=== PATIENT | male | born 1935 | race Two or more races ===

== ENCOUNTER 2020-05-29 04:40 | Inpatient (IN) | payer MEDICARE, OTHER ==
[~2020-05-29] VITALS: Ht 180.3 cm; Wt 94.3 kg
[2020-05-29] MEDS ORDERED: IV NS 0.9% 500 ML BAG IV ONE ×2 (05:00→06:30)
--- NOTE | 2020-05-29 05:00 | NUR ---
RAC 18G IV STABLISHED, BLOOD DRAWN AND COVID SWAB COLLECTED AND SENT TO THE LAB
--- NOTE | 2020-05-29 05:05 | NUR ---
PT TRANSPORTED TO RADIOLOGY FOR CT.
[2020-05-29 05:07] LABS: BASOPHILS % (AUTO) 0.5 % (0.0-2.0); EOSINOPHILS % (AUTO) 1.4 % (0.0-6.0); HEMATOCRIT 41 % (39-51); HEMOGLOBIN 13.6 g/dL (13.5-17.5); LYMPHOCYTES # (AUTO) 0.5 /CMM (0.8-4.8); LYMPHOCYTES % (AUTO) 8.4 % (20.0-44.0); MEAN CORPUSCULAR HGB CONC 33 g/dl (31.0-36.0); MEAN CORPUSCULAR VOLUME 104 fL (80-96); MONOCYTES # (AUTO) 0.5 /CMM (0.1-1.30); MONOCYTES % (AUTO) 8.2 % (2.0-12.0); NEUTROPHILS # (AUTO) 4.9 /CMM (1.8-8.9); NEUTROPHILS % (AUTO) 81.5 % (43.0-81.0); PLATELET COUNT (AUTO) 276 /CMM (150-450); RED BLOOD CELL COUNT(AUTO) 3.96 MIL/uL (4.5-6.0); WHITE BLOOD COUNT (AUTO) 6.1 K/uL (4.3-11.0)
[2020-05-29 05:16] LABS: CALCIUM, SERUM 9.3 mg/dL (8.5-10.1); CARBON DIOXIDE 21 mmol/L (21-32); CHLORIDE 107 mmol/L (98-107); CREATININE 1.6 mg/dL (0.6-1.3); GLUCOSE 111 mg/dL (74-106); POTASSIUM 4.5 mmol/L (3.5-5.1); SODIUM SERUM 142 mmol/L (136-145); UREA NITROGEN, BLOOD 25 mg/dL (7-18)
--- NOTE | 2020-05-29 05:19 | NUR ---
BACK FROM CT
[2020-05-29 05:31] LABS: ALANINE AMINOTRANSFERASE 25 U/L (12-78); ALBUMIN 3.2 g/dL (3.4-5.0); ALKALINE PHOSPHATASE 98 U/L (46-116); ASPARTATE AMINOTRANSFERASE 21 U/L (15-37); BILIRUBIN,DIRECT 0.1 mg/dL (0.0-0.2); BILIRUBIN,TOTAL 0.4 mg/dL (0.2-1.0); TOTAL PROTEIN, SERUM 7.6 g/dL (6.4-8.2)
--- NOTE | 2020-05-29 05:32 | NUR ---
PT REFUSED STRAIGHT CATH FOR URINE COLLECTION DUE TO PAST PROSTATE SURGERY, PT WAS PROVIDED W. A URINAL . WILL F/U
--- NOTE | 2020-05-29 05:45 | NUR ---
Pt refused CT Head. Pt states that he did not hit his head and does not need the ct scan
--- NOTE | 2020-05-29 05:59 | NUR ---
LAB CALLED REGARDING NEGATIVE COVID-19 RESULT.
[2020-05-29 06:07] LABS: CREATINE KINASE, TOTAL 69 U/L (39-308)
--- NOTE | 2020-05-29 06:15 | NUR ---
urine collected and sent to lab
[2020-05-29 06:28] LABS: APPEARANCE,URINE HAZY (CLEAR); BILIRUBIN,URINE Negative (NEGATIVE); BLOOD, URINE Small Ery/uL (NEGATIVE); COLOR,URINE Yellow (YELLOW); KETONES,URINE Negative (NEGATIVE); LEUKOCYTE ESTERASE ,URINE Negative (NEGATIVE); NITRITE, URINE Negative (NEGATIVE); PROTEIN,URINE 100 mg/dl (NEGATIVE); UGLUCOSE Negative (NEGATIVE); UROBILINOGEN,URINE 0.2 EU/dL (0.2)
--- NOTE | 2020-05-29 06:30 | NUR ---
PT REFUSE CT SCAN @0630 YW
[2020-05-29 06:31] LABS: BACTERIA,URINE None seen /HPF (None Seen); SQUAMOUS EPITHELIAL CELL,UR Few /HPF (None Seen); WBC,URINE 0-2 /HPF (0-3)
[2020-05-29 06:32] LABS: HYALINE CASTS, URINE Few /LPF (None Seen); MUCUS,URINE Few /LPF (None Seen)
--- NOTE | 2020-05-29 07:12 | NUR ---
PT REFUSED HEAD CT. DR DAVIDSON AWARE
[2020-05-29] MEDS ORDERED: MORPHINE SULFATE INJ 2 MG/ML DISP.SYRIN IV PRN (07:30)
[2020-05-29] MEDS ORDERED: PANTOPRAZOLE 40 MG TABLET.DR PO SCH (07:30)
[2020-05-29] MEDS ORDERED: ONDANSETRON HCL/PF 4 MG/2 ML VIAL IVP PRN (07:30)
[2020-05-29] MEDS ORDERED: ACETAMINOPHEN 325 MG TABLET PO PRN (07:30)
--- NOTE | 2020-05-29 07:31 | NUR ---
RECEIVED REPORT FROM CHRISTIE AHUJA FOR LAY. PT IS AAOX3, NOT IN RESPIRATORY DISTRESS, V/S STABLE, KEPT RESTED AND COMFORTABLE. WILL CONTINUE TO MONITOR.
--- NOTE | 2020-05-29 07:32 | NUR ---
CALLED HOUSE SUP FOR TELE BED.
--- NOTE | 2020-05-29 08:25 | NUR ---
CALLED [facility] FOR REPORT RN NOT AVAILABLE.
[2020-05-29 08:32] LABS: MAGNESIUM 2.2 mg/dL (1.8-2.4); PHOSPHORUS 2.9 mg/dL (2.5-4.9)
[2020-05-29 08:36] LABS: THYROID STIMULATING HORMONE 1.217 uIU/mL (0.358-3.74)
[2020-05-29] MEDS ORDERED: LOSA50TA39 PO (08:38)
[2020-05-29] MEDS ORDERED: FLUT1BLS INH (08:38)
[2020-05-29] MEDS ORDERED: ALLO100T PO (08:38)
[2020-05-29] MEDS ORDERED: CLOP75TA15 PO (08:38)
[2020-05-29] MEDS ORDERED: CELE-85 PO (08:38)
[2020-05-29] MEDS ORDERED: TIOT4MIS2 INH (08:38)
[2020-05-29] MEDS ORDERED: AMLO5TAB9 PO (08:38)
[2020-05-29] MEDS ORDERED: HYDR25TA4 PO (08:38)
--- NOTE | 2020-05-29 08:45 | NUR ---
REPORT GIVEN TO CHRISTIE HILL FOR LAY.
[2020-05-29 08:57] VITALS: BP 146/90
--- NOTE | 2020-05-29 08:59 | NUR ---
OYSTER CULTIVATOR NOTES PATIENT ADMITTED FROM ER ON TELE [address], ON DX OF R/O PNEUMONIA, FALL RIGHT HIP FRACTURE. PATIENT A/O X3/4, UNKEPT, POOR HYGIENE, NO TELE MONITOR, V/S TAKEN BP 146/90, P-114, R-20, T-98, O2-2LNC. WAS COMPLAINING OF PAIN ON RIGHT HIP 7/10 ON PAIN SCALE, SKIN ASSESSMENT DONE PATIENT HAS REDNESS ,CELLULITIS, AND EDEMA BLE, REDNESS WITH OPENING ON SACRAL AREA. PATIENT CONTINENT GIVEN URINAL. BED REST. ADMITTING HOSPITALIST AWARE OF NEW PATIENT AND MEDICATION, CALL LIGHT WITHIN TO REACH, CONTINUED MONITORING.
[2020-05-29] MEDS ORDERED: IV NS 0.9% 1,000 ML IV PRN (09:19)
[2020-05-29] MEDS ORDERED: METO25TA20 PO (09:40)
[2020-05-29] MEDS ORDERED: HYDROCODONE/APAP 5/325MG 1 EACH TABLET PO PRN (10:30)
[2020-05-29] MEDS: DOCUSATE SODIUM 100 MG CAPSULE PO SCH ×2 (10:35→17:46)
[2020-05-29] MEDS: PIPERACILLIN /TAZOBACTAM 3.375 G in IV D5W 100 ML IV SCH ×2 (10:35→17:48)
--- NOTE | 2020-05-29 10:36 | NUR ---
rn notes administered morphine sulfate 1 mg/ml iv push for right rib pain per patient request, v/s taken bpo 135/88, p-113, r-19. call light within to reach. continued monitoring.
--- NOTE | 2020-05-29 11:29 | NUR ---
rn notes get troponin 0.961 critical result from lab called Dr. Sutherland and per md will order Lovenox sq. continued monitoring.
[2020-05-29] MEDS ORDERED: FLUTICASONE/VILANTEROL 1 EACH BLST.W.DEV IH SCH (12:00)
[2020-05-29] MEDS ORDERED: TIOTROPIUM BROMIDE INH SCH (12:00)
[2020-05-29] MEDS ORDERED: PIPERACILLIN /TAZOBACTAM 2.25 G in IV D5W 50 ML IV SCH (12:00)
[2020-05-29] MEDS ORDERED: ALLOPURINOL 100 MG TABLET PO SCH (12:00)
[2020-05-29] MEDS ORDERED: AMLODIPINE BESYLATE 5 MG TABLET PO SCH (12:00)
[2020-05-29] MEDS ORDERED: CLOPIDOGREL BISULFATE 75 MG TABLET PO SCH (12:00)
[2020-05-29] MEDS ORDERED: METOPROLOL TARTRATE 25 MG TABLET PO SCH (12:00)
[2020-05-29] MEDS ORDERED: ENOXAPARIN SODIUM 100 MG/ML DISP.SYRIN SQ SCH (12:10)
[2020-05-29] MEDS ORDERED: IPRATROPIUM NEB FS 0.5 MG/2.5 ML AMPUL.NEB NEB SCH (13:30)
[2020-05-29 15:21] LABS: CREATININE, URINE 93.5 MG/DL (30.0-125.0); URINE TOTAL PROTEIN 61.2 mg/dL (0-11.9)
[2020-05-29 16:00] VITALS: BP 98/68
[2020-05-29 16:31] VITALS: BP 98/68
--- NOTE | 2020-05-29 16:34 | NUR ---
RN NOTES PATIENT MIXING MACHINE TENDER FOR CT OF HEAD W/O CONTRAST.
--- NOTE | 2020-05-29 16:54 | NUR ---
RN NOTES PATIENT BACK FROM CT. STABLE
[2020-05-29] MEDS ORDERED: Z GUARD REMEDY 2 OZ OINT TP SCH (17:00)
--- NOTE | 2020-05-29 19:03 | NUR ---
rn notes get call pt troponin 11.[address] Sutherland no new order. patient has hydrocephalus, and per neuro will transfer to the [facility], waiting for bed. patient damián no acute respiratory distress, v/s wnl, call light within to reach, infusing Zosyn 25 ml/hr intact, on right ac area . Endorsed oncoming nurse follow plan of care.
--- NOTE | 2020-05-29 19:30 | NUR ---
ELEVATOR BUILDER NOTES PATIENT IN BED, AWAKE, ALERT AND ORIENTED X 3. BREATHING EVEN AND UNLABORED ON 2L. SHOWS NO SIGNS OF ACUTE RESPIRATORY DISTRESS. NO ACUTE PAIN. IV ON RAC 18G RUNNING NS AT 125ML/HR. SHOWS NO SIGNS OF INFILTRATION, NO REDNESS. SAFETY PRECAUTION IN PLACE. BED IN LOWEST POSITION, LOCKED, AND CALL LIGHT KEPT WITHIN REACH. WILL CONTINUE TO MONITOR.
[2020-05-29 20:20] VITALS: BP 114/68
[2020-05-29] MEDS ORDERED: ENOX100D SQ (21:19)
[2020-05-29] MEDS ORDERED: PIPE3.379 IV (21:19)
--- NOTE | 2020-05-29 21:45 | NUR ---
BATH MIXER NOTES PATIENT LEFT FLOOR WITH AMBULANCE AT 2145. PT GOING TO [facility] FOR HIGHER LEVEL OF CHARGE. RECEIVED ORDERS FROM [facility] FOR TRANSFER. IV KEPT IN PLACE. BELONGINGS CHECKLIST COMPLETED. CD AND DISCHARGE SUMMER GIVEN TO EMT'S. REMOVED TELE BOX. GIVEN REPORT TO KERLINE SORIANO AT [facility] FOR CONTINUITY OF CARE. PT VITALS WERE WNL. SHOWS NO SIGNS OF ACUTE RESPIRATORY DISTRESS, NO ACUTE PAIN. PT MADE AWARE AND EDUCATED FOR GOING TO [facility].
== END 2020-05-29 21:45 | disposition short-term general hospital (02) | DRG 682 ==
LOC: ER 04:41 → TELE 08:22
PROVIDERS: ADMIT Hospitalist; ATTEND Hospitalist
DX: N17.0 Acute kidney failure with tubular necrosis (principal); I21.A1 Myocardial infarction type 2; S22.32XA Fracture of one rib, left side, initial encounter for closed fracture; E44.1 Mild protein-calorie malnutrition; J98.11 Atelectasis; G91.2 (Idiopathic) normal pressure hydrocephalus; W18.30XA Fall on same level, unspecified, initial encounter; Z91.81 History of falling; M19.90 Unspecified osteoarthritis, unspecified site; I25.10 Atherosclerotic heart disease of native coronary artery without angina pectoris; I08.0 Rheumatic disorders of both mitral and aortic valves; S70.01XA Contusion of right hip, initial encounter; Y93.9 Activity, unspecified; Y92.009 Unspecified place in unspecified non-institutional (private) residence as the place of occurrence of the external cause; D53.9 Nutritional anemia, unspecified; E86.0 Dehydration; E88.09 Other disorders of plasma-protein metabolism, not elsewhere classified; Z68.29 Body mass index [BMI] 29.0-29.9, adult; N40.0 Benign prostatic hyperplasia without lower urinary tract symptoms; I12.9 Hypertensive chronic kidney disease with stage 1 through stage 4 chronic kidney disease, or unspecified chronic kidney disease; N18.9 Chronic kidney disease, unspecified
CPT/HCPCS: 36415; 70450-TC; 71045-TC; 73700-TC; 80048-TC; 80061-TC; 80076-TC; 81000-TC; 82550-TC; 82570-TC; 83735-TC; 83880; 84100-TC; 84155-TC; 84300-TC; 84443-TC; 84484-TC; 85025-TC; 87081-TC; 93307-TC; 97112-TC; 97530-TC; G0378; J1650; J2270; J2543; J7060

== ENCOUNTER 2020-06-07 21:41 | Inpatient (IN) | payer MEDICARE ==
[~2020-06-07] VITALS: Ht 180.3 cm; Wt 90.7 kg
[2020-06-07 20:00] VITALS: BP 141/87
--- NOTE | 2020-06-07 21:20 | NUR ---
TELE/RN OPENING NOTES RECEIVED PATIENT TRANSFER FROM [facility]. PATIENT ARRIVED VIA GURNEY BY TWO PIPE ORGAN INSTALLER FROM [facility] AND ONE RN. PATIENT IS INJURY FREE DURING TRANSPORT. PATIENT IS ALERT AND ORIENTED X 2-3. NO SIGNS OF RESPIRATORY DISTRESS NOTED OR SOB. PATIENT IS ON 3L OXYGEN STAT AT 96% VIA N/C. BREATHING IS EVEN AN UNLABORED. PATIENT STATES NO CHEST PAIN AT THIS TIME. PATIENT HAS IV ACCESS ON LEFT AC #20 G SL FLUSHING WELL. PATIENT HAVE SKIN TEARS ON RIGHT HAND AND LEFT LEG/KNEE, CLEAN AND DRESSING APPLIED. MULTIPLE BRUISES BOTH UPPER AND LOWER EXTREMITIES. PATIENT STATES PAIN ON RIGHT LEG. SAFETY MEASURES ARE IN PLACE, BED IS LOCKED A PLACED IN THE LOW POSITION, SIDE RAILS UP X 2, CALL LIGHT WITH IN REACH. WILL CONTINUE TO MONITOR.
[~2020-06-07 21:41] MED LIST: ALLO100T PO; AMLO5TAB9 PO; CLOP75TA15 PO; ENOX100D SQ; FLUT1BLS INH; METO25TA20 PO; PIPE3.379 IV; TIOT4MIS2 INH
[2020-06-07] MEDS ORDERED: MORPHINE SULFATE INJ 2 MG/ML DISP.SYRIN IV PRN (22:30)
[2020-06-07] MEDS ORDERED: HYDROCODONE/APAP 5/325MG TABLET PO PRN (22:30)
[2020-06-07] MEDS ORDERED: ONDANSETRON HCL/PF 4 MG/2 ML VIAL IVP PRN (22:30)
[2020-06-07] MEDS ORDERED: MAG HYDROX/AL HYDROX/SIMETH 30 ML UDC PO PRN (22:30)
[2020-06-07] MEDS ORDERED: ACETAMINOPHEN 325 MG TABLET PO PRN (22:30)
[2020-06-07] MEDS ORDERED: Z GUARD REMEDY 2 OZ OINT TP PRN (22:30)
[2020-06-07] MEDS ORDERED: MAGNESIUM HYDROXIDE 30 ML UDC PO PRN (22:30)
[2020-06-07] MEDS ORDERED: METOPROLOL SUCCINATE 50 MG TAB.SR.24H PO SCH (23:30)
[2020-06-08] VITALS: BP 111/75
[2020-06-08] MEDS ORDERED: ENOXAPARIN SODIUM 100 MG/ML DISP.SYRIN SQ ONE ×2 (00:30→01:00)
[2020-06-08 04:00] VITALS: BP 139/74
--- NOTE | 2020-06-08 06:15 | NUR ---
TELE/RN CLOSING PATIENT IS IN BED SLEEP EASY TO AROUSE. PATIENT IS ALERT AND ORIENTED X 1-2. PATIENT IS ON 3L OF O2 N/C TOLERATING WELL. NO SIGNS OF SOB OR RESPIRATORY DISTRESS NOTED. TELE READING 95 BPM. PATIENT IS IN A COMFORTABLE POSITION. PATIENT HAS IV ACCES ON LEFT AC #[address] FLUSHING WELL. ALL PATIENTS NEEDS HAVE BEEN MET DURING SHIFT. FALL PRECAUSTIONS ARE IN PLACE. SAFETY MEASURES ARE IN PLACE BED IS LOCKED AND IN LOW POSITION, SIDE RAILS UP X 3 ALARM ON. CALL LIGHT IS WITHIN REACH. WILL ENDORSE TO DAY SHIFT.
[2020-06-08 06:54] LABS: EOSINOPHILS % (AUTO) 0.4 % (0.0-6.0); HEMATOCRIT 36 % (39-51); HEMOGLOBIN 11.6 g/dL (13.5-17.5); LYMPHOCYTES # (AUTO) 0.6 /CMM (0.8-4.8); LYMPHOCYTES % (AUTO) 9.9 % (20.0-44.0); MEAN CORPUSCULAR HGB CONC 32 g/dl (31.0-36.0); MEAN CORPUSCULAR VOLUME 103 fL (80-96); MONOCYTES # (AUTO) 0.6 /CMM (0.1-1.30); MONOCYTES % (AUTO) 9.5 % (2.0-12.0); NEUTROPHILS # (AUTO) 4.7 /CMM (1.8-8.9); NEUTROPHILS % (AUTO) 80.2 % (43.0-81.0); PLATELET COUNT (AUTO) 317 /CMM (150-450); WHITE BLOOD COUNT (AUTO) 5.9 K/uL (4.3-11.0)
[2020-06-08 07:25] LABS: ALBUMIN 2.8 g/dL (3.4-5.0); BILIRUBIN,TOTAL 0.4 mg/dL (0.2-1.0); CALCIUM, SERUM 8.8 mg/dL (8.5-10.1); CREATININE 1.2 mg/dL (0.6-1.3); MAGNESIUM 2.2 mg/dL (1.8-2.4); PHOSPHORUS 2.8 mg/dL (2.5-4.9); POTASSIUM 4.1 mmol/L (3.5-5.1); TOTAL PROTEIN, SERUM 6.8 g/dL (6.4-8.2)
--- NOTE | 2020-06-08 07:47 | NUR ---
rn notes patient received on room air, no sob noted, a/o x4, patient removed NGT. ambulatory at this time and stated that he was able to have a BM last night. clear liquid diet at this time, tolerating, no reports of N/V. L hand 24 gauge with d5 1/2 NS @ 75 ml per hour. bed at the lowest setting, call light within reach, side rails upx 2. Addendum: 06/08/20 at 0750 by KENZIE COOPER RN ERROR
--- NOTE | 2020-06-08 07:50 | NUR ---
rn notes patient received with 3L nasal cannula, a/o x2-3 and states that he wants to go home. SR's in the 90's with cardiac diet. L AC 20 present at this time. pending cardiology consult. D/C planning once cardiology clear patient. bed at the lowest setting, call light within reach, side rails up x2.
[2020-06-08] MEDS: ISOSORBIDE MONONITRATE (30MG) 30 MG TAB.SR.24H PO SCH (08:43)
[2020-06-08] MEDS: AMLODIPINE BESYLATE 5 MG TABLET PO SCH (08:44)
[2020-06-08] MEDS: METOPROLOL TARTRATE 25 MG TABLET PO SCH ×2 (08:44→16:26)
[2020-06-08] MEDS: QUETIAPINE FUMARATE 25 MG TABLET PO SCH ×2 (08:44→17:11)
[2020-06-08] MEDS: ASPIRIN EC 81 MG TABLET.DR PO SCH (08:44)
[2020-06-08] MEDS: CLOPIDOGREL BISULFATE 75 MG TABLET PO SCH (08:44)
[2020-06-08] MEDS: LOSARTAN POTASSIUM 50 MG TABLET PO SCH ×2 (08:44→16:25)
[2020-06-08] MEDS: ALLOPURINOL 100 MG TABLET PO SCH (08:44)
[2020-06-08] MEDS: FLUTICASONE/VILANTEROL 1 EACH BLST.W.DEV IH SCH (08:45)
[2020-06-08] MEDS: ENOXAPARIN SODIUM 100 MG/ML DISP.SYRIN SQ SCH ×2 (08:45→22:05)
[2020-06-08] MEDS ORDERED: CLOPIDOGREL BISULFATE 75 MG TABLET PO SCH (09:00)
[2020-06-08] MEDS ORDERED: TIOTROPIUM BROMIDE 6 CAP/BOX CAP.W.DEV IH SCH (09:00)
[2020-06-08] MEDS ORDERED: ENOXAPARIN SODIUM 30 MG/0.3 ML DISP.SYRIN SQ SCH (09:00)
[2020-06-08] MEDS ORDERED: FLUTICASONE 110MCG 1 EA INHALER IH SCH (09:00)
--- NOTE | 2020-06-08 09:17 | NUR ---
WOUND CARE CONSULT: PT PRESENTS WITH OPEN ABRASION BELOW LEFT KNEE AND CRUSTED WOUNDS TO FEET AND LOWER LEGS, WELL SACRAL SCAR AND SKIN TEAR TO RT HAND, ALL PRESENT ON ADMISSION. RECOMMEND DPM CONSULT. DR MCFADDEN NOTIFIED OF CONSULT REQUEST. RECOMMENDATIONS MADE FOR SKIN PROTECTION AND WOUND CARE. DEFER TO DPM FOR LOWER EXTREMITIES. WILL SEE PRN. GROVES IN AGREEMENT WITH PLAN OF CARE. Addendum: 06/08/20 at 0919 by NIDIA MCLEAN WNDNU Amended: Links added.
--- NOTE | 2020-06-08 12:33 | NUR ---
rn notes patients BP 60/30, MACHINE TOOL TECHNICIAN INSTRUCTOR andrew aware, orders are to give 500 ml NS wide open, re check BP if systolic lower than 90, re bolus another 500 ml per hour NS.
[2020-06-08] MEDS ORDERED: IV NS 0.9% 500 ML IV ONE ×2 (13:00→14:00)
--- NOTE | 2020-06-08 13:56 | NUR ---
rn notes post IV NS 500 ml bolus BP, 83/60, will rebolus again another 500 ml per order.
[2020-06-08 14:49] VITALS: BP 81/52
[2020-06-08 15:46] VITALS: BP 102/63
--- NOTE | 2020-06-08 16:29 | NUR ---
Designer Architect was contacted by Pedrito from [employer] to speak with patient's daughter Marlene Kirby about durable power of patent attorney. Designer Architect was able to speak with Marlene. Marlene stated that she has all the paperwork filled out for Durable Power of Director [employer] and just needs signed by the patient and witnesses. This SW spoke to Pedrito regarding this. Pedrito notified this SW that we will need to continue to monitor when it is best for Marlene to come in as the patient is currently not alert and oriented at baseline (x4). Designer Architect to remain available for all needs.
--- NOTE | 2020-06-08 17:55 | NUR ---
rn notes patient remains with 3L nasal cannula, a/o x2-3 and states that he wants to go home. SR's in the 90's with cardiac diet. L AC 20 present at this time. pending cardiology consult. D/C planning once cardiology clear patient. bed at the lowest setting, call light within reach, side rails up x2. Patient had hypotensive episode, 2 Bolus given with 1L total NS and BP is now stable. Held BP meds for night.
--- NOTE | 2020-06-08 19:05 | NUR ---
SURGICAL SERVICES ASSISTANT NOTES RECEIVED PT IN BED AND AWAKE. PT A/O 2 WITH PERIODS OF CONFUSION. RESPIRATIONS EVEN AND UNLABORED WITH ON S/S OF ACUTE DISTRESS OR SOB NOTED. NO COMPLAINTS OF PAIN AT THIS TIME. PT NOTED WITH LAC 20G PATENT AND INTACT AND SL. SAFETY MEASURES IN PLACE WITH BED IN LOWEST LOCKED POSITION WITH SIDE RAILS UP X2. CALL LIGHT WITHIN REACH. WILL CONTINUE TO MONITOR.
[2020-06-08] MEDS: IPRATROPIUM NEB FS 0.5 MG/2.5 ML AMPUL.NEB NEB SCH (19:42)
[2020-06-08 20:00] VITALS: BP 101/50
[2020-06-08] MEDS: ATORVASTATIN 10 MG TABLET PO SCH (22:39)
[2020-06-09 00:44] VITALS: BP 125/56
[2020-06-09] MEDS: IPRATROPIUM NEB FS 0.5 MG/2.5 ML AMPUL.NEB NEB SCH ×5 (01:47→19:30)
[2020-06-09 04:00] VITALS: BP 110/69
--- NOTE | 2020-06-09 04:00 | NUR ---
NOTCHED BLADE LOADER NOTES INFORMED LAB THAT COVID TEST WAS NEEDED. LAB INFORMED THAT WHEN ITS READY THEY WOULD LET US KNOW TO COME PICK IT UP. WILL CONTINUE TO MONITOR.
[2020-06-09 05:50] LABS: URINE SODIUM, RANDOM 87 mmol/l (40-220)
--- NOTE | 2020-06-09 06:00 | NUR ---
RAG CUTTING MACHINE OPERATOR NOTES PT AGGRESSIVE, TRYING TO HIT SHOEMAKING FINISHER AND RN'S WHEN TRYING TO CHANGE PT. WILL CONTINUE TO MONITOR.
--- NOTE | 2020-06-09 06:57 | NUR ---
DERRICK BOAT LEVERMAN NOTES PT IN BED AND AWAKE. PT A/O 2 WITH PERIODS OF CONFUSION. RESPIRATIONS EVEN AND UNLABORED WITH ON S/S OF ACUTE DISTRESS OR SOB NOTED THROUGHOUT SHIFT. PT KEPT CLEAN, DRY, AND COMFORTABLE. NO COMPLAINTS OF PAIN AT THIS TIME. PT NOTED WITH LAC 20G PATENT AND INTACT AND SL. SAFETY MEASURES IN PLACE WITH BED IN LOWEST LOCKED POSITION WITH SIDE RAILS UP X2. CALL LIGHT WITHIN REACH. WILL ENDORSE TO ONCOMING NURSE FOR LAY.
--- NOTE | 2020-06-09 07:38 | NUR ---
GREASE RACK WORKER OPENING NOTES PATIENT IS A/0 X 2 AWAKE WITH NO SIGNS OF DISTRESS AND NO SOB ON 3L OF NASAL CANNULA. IV L AC#20G INTACT SL. NO COMPLAINT OF PAIN OR DISCOMFORT AT THIS TIME. SAFETY MEASURES ARE APPLIED BED IS LOCKED AND LOW POSITION, SIDE RAILS UP X 2 FOR SAFETY. CALL LIGHT WITHIN REACH WILL CONTINUE TO MONITOR.
--- NOTE | 2020-06-09 07:47 | NUR ---
PT REFUSED RESP TX ATT. NO S/S OF SOB NOTED. WILL CONT TO MONITOR Addendum: 06/09/20 at 0748 by ILSA MATHUR RT Amended: Links added.
--- NOTE | 2020-06-09 08:00 | NUR ---
NOTIFIED BY SENIOR APPLICATIONS ARCHITECT PATIENT REFUSED BLOOD DRAW. WILL TRY AGAIN LATER.
[2020-06-09] MEDS: ENOXAPARIN SODIUM 40 MG/0.4 ML DISP.SYRIN SQ SCH (09:30)
[2020-06-09] MEDS: AMLODIPINE BESYLATE 5 MG TABLET PO SCH (09:45)
[2020-06-09] MEDS: LOSARTAN POTASSIUM 50 MG TABLET PO SCH ×2 (09:45→17:00)
[2020-06-09] MEDS: METOPROLOL TARTRATE 25 MG TABLET PO SCH ×2 (09:46→17:00)
[2020-06-09] MEDS: ISOSORBIDE MONONITRATE (30MG) 30 MG TAB.SR.24H PO SCH (09:46)
[2020-06-09] MEDS: ASPIRIN EC 81 MG TABLET.DR PO SCH (09:46)
[2020-06-09] MEDS: CLOPIDOGREL BISULFATE 75 MG TABLET PO SCH (09:54)
[2020-06-09] MEDS: FLUTICASONE/VILANTEROL 1 EACH BLST.W.DEV IH SCH (09:55)
[2020-06-09] MEDS: QUETIAPINE FUMARATE 25 MG TABLET PO SCH ×3 (09:58→18:08)
[2020-06-09] MEDS: ALLOPURINOL 100 MG TABLET PO SCH (09:59)
[2020-06-09 10:53] LABS: OSMOLALITY,URINE 688 mOS/kg (340-1090)
--- NOTE | 2020-06-09 12:21 | NUR ---
NOTIFIED BY SUPERVISOR CEMETERY WORKERS PATIENT REFUSED BLOOD DRAW AGAIN. WILL TRY AGAIN LATER.
--- NOTE | 2020-06-09 18:55 | NUR ---
MS RN CLOSING NOTES PATIENT IS A/0 X 2 AWAKE WITH NO SIGNS OF DISTRESS AND NO SOB ON 3L OF NASAL CANNULA. IV L AC#20G INTACT SL. NO COMPLAINT OF PAIN OR DISCOMFORT AT THIS TIME. PATIENT REMAINED STABLE THROUGH OUT SHIFT. PATIENT KEPT CLEAN AND DRY. ALL NEEDS, CARE, TTREATMENT AND MEDICATIONS ADMINOISTERED ANTICIPATED PER ORDER. SAFETY MEASURES ARE APPLIED BED IS LOCKED AND LOW POSITION, SIDE RAILS UP X 2 FOR SAFETY. WILL EMDORSE TO THE NEXT NEUROLOGY SPECIALIST.
--- NOTE | 2020-06-09 19:31 | NUR ---
MS RN OPENING NOTES PATIENT SLEEPING, EASY TO AWAKEN. A/OX2. ON 3L NC. NO S/S OF ACUTE RESPIRATORY DISTRESS; BREATHING IS EVEN AND UNLABORED. NO S/S OF PAIN NOTED. IV PRESENT ON LEFT AC, SIZE 20, INTACT & PATENT, HEP LOCKED. PER DAY SHIFT RN, PATIENT REFUSING COVID 19 PCR NASAL SWAB. SAFETY MEASURES IN PLACE AND PATIENT'S NEEDS MET. BED LOCKED, ALARM ON, SIDE RAILS X3, CALL LIGHT WITHIN REACH. WILL CONTINUE TO MONITOR.
[2020-06-09 20:00] VITALS: BP_SYST 113; BP_SYST 159; BP_DIAS 50; BP_DIAS 85
--- NOTE | 2020-06-09 20:05 | NUR ---
MS RN NOTES PATIENT REMOVED KERLIX GAUZE WRAP ON RIGHT HAND AND IS REFUSING NEW ONE. PATIENT DENIES ANY SOB OR CHEST PAIN AT THIS TIME. WILL CONTINUE TO MONITOR.
[2020-06-09] MEDS: ATORVASTATIN 10 MG TABLET PO SCH (21:05)
[2020-06-09 21:17] LABS: CALCIUM, SERUM 8.6 mg/dL (8.5-10.1); CARBON DIOXIDE 34 mmol/L (21-32); CHLORIDE 109 mmol/L (98-107); CREATININE 1.8 mg/dL (0.6-1.3); GLUCOSE 140 mg/dL (74-106); MAGNESIUM 2.1 mg/dL (1.8-2.4); PHOSPHORUS 2.2 mg/dL (2.5-4.9); POTASSIUM 3.8 mmol/L (3.5-5.1); SODIUM SERUM 146 mmol/L (136-145); UREA NITROGEN, BLOOD 44 mg/dL (7-18)
[2020-06-09 21:29] LABS: THYROID STIMULATING HORMONE 0.696 uIU/mL (0.358-3.74); URIC ACID 5.1 mg/dL (2.6-7.2)
[2020-06-10] MEDS: IPRATROPIUM NEB FS 0.5 MG/2.5 ML AMPUL.NEB NEB SCH ×4 (01:28→20:15)
--- NOTE | 2020-06-10 03:27 | NUR ---
MS SORIANO RAPID COVID TEST NOTES RAPID COVID TEST OBTAINED AND SENT TO LAB
--- NOTE | 2020-06-10 06:38 | NUR ---
MS RN CLOSING NOTES PATIENT SLEEPING, EASY TO AWAKEN. REFUSES LINEN CHANGE AT THIS TIME. A/OX2. ON 3L NC. NO S/S OF ACUTE RESPIRATORY DISTRESS; BREATHING IS EVEN AND UNLABORED. NO S/S OF PAIN NOTED. IV PRESENT ON LEFT AC, SIZE 20, INTACT & PATENT, HEP LOCKED. SAFETY MEASURES IN PLACE AND PATIENT'S NEEDS MET. BED LOCKED, ALARM ON, SIDE RAILS X3, CALL LIGHT WITHIN REACH. WILL ENDORSE TO DAY SHIFT RN PLAN OF CARE.
[2020-06-10 06:47] LABS: BASOPHILS % (AUTO) 0.1 % (0.0-2.0); EOSINOPHILS % (AUTO) 0.5 % (0.0-6.0); HEMATOCRIT 27 % (39-51); HEMOGLOBIN 9.1 g/dL (13.5-17.5); LYMPHOCYTES # (AUTO) 0.6 /CMM (0.8-4.8); LYMPHOCYTES % (AUTO) 7.6 % (20.0-44.0); MEAN CORPUSCULAR HGB CONC 33 g/dl (31.0-36.0); MEAN CORPUSCULAR VOLUME 102 fL (80-96); MONOCYTES # (AUTO) 0.7 /CMM (0.1-1.30); MONOCYTES % (AUTO) 8.7 % (2.0-12.0); NEUTROPHILS # (AUTO) 6.3 /CMM (1.8-8.9); NEUTROPHILS % (AUTO) 83.1 % (43.0-81.0); PLATELET COUNT (AUTO) 244 /CMM (150-450); RED BLOOD CELL COUNT(AUTO) 2.68 MIL/uL (4.5-6.0); WHITE BLOOD COUNT (AUTO) 7.6 K/uL (4.3-11.0)
[2020-06-10 07:06] LABS: ALANINE AMINOTRANSFERASE 41 U/L (12-78); ALBUMIN 2.5 g/dL (3.4-5.0); ALKALINE PHOSPHATASE 60 U/L (46-116); ASPARTATE AMINOTRANSFERASE 78 U/L (15-37); BILIRUBIN,TOTAL 0.6 mg/dL (0.2-1.0); CALCIUM, SERUM 8.4 mg/dL (8.5-10.1); CARBON DIOXIDE 35 mmol/L (21-32); CHLORIDE 109 mmol/L (98-107); CREATININE 1.7 mg/dL (0.6-1.3); GLUCOSE 122 mg/dL (74-106); MAGNESIUM 2.2 mg/dL (1.8-2.4); PHOSPHORUS 2.4 mg/dL (2.5-4.9); POTASSIUM 3.6 mmol/L (3.5-5.1); SODIUM SERUM 145 mmol/L (136-145); TOTAL PROTEIN, SERUM 7.2 g/dL (6.4-8.2); UREA NITROGEN, BLOOD 43 mg/dL (7-18)
--- NOTE | 2020-06-10 07:41 | NUR ---
MS RN OPENING NOTES PATIENT IS A/0 X 2 AWAKE WITH NO SIGNS OF DISTRESS AND NO SOB ON 3L OF NASAL CANNULA. IV L AC#20G INTACT SL. NO COMPLAINT OF PAIN OR DISCOMFORT AT THIS TIME. SAFETY MEASURES ARE APPLIED BED IS LOCKED AND LOW POSITION, SIDE RAILS UP X 2 FOR SAFETY. CALL LIGHT WITHIN REACH WILL CONTINUE TO MONITOR.
[2020-06-10] MEDS ORDERED: IV NS 0.9% 1,000 ML IV PRN (09:21)
[2020-06-10] MEDS: ISOSORBIDE MONONITRATE (30MG) 30 MG TAB.SR.24H PO SCH (09:33)
[2020-06-10] MEDS: CLOPIDOGREL BISULFATE 75 MG TABLET PO SCH (09:34)
[2020-06-10] MEDS: LOSARTAN POTASSIUM 50 MG TABLET PO SCH ×2 (09:34→17:00)
[2020-06-10] MEDS: QUETIAPINE FUMARATE 25 MG TABLET PO SCH ×2 (09:35→18:11)
[2020-06-10] MEDS: ASPIRIN EC 81 MG TABLET.DR PO SCH (09:35)
[2020-06-10] MEDS: ALLOPURINOL 100 MG TABLET PO SCH (09:35)
[2020-06-10] MEDS: AMLODIPINE BESYLATE 5 MG TABLET PO SCH (09:36)
[2020-06-10] MEDS: ENOXAPARIN SODIUM 40 MG/0.4 ML DISP.SYRIN SQ SCH (09:38)
[2020-06-10] MEDS: FLUTICASONE/VILANTEROL 1 EACH BLST.W.DEV IH SCH (09:40)
--- NOTE | 2020-06-10 10:27 | NUR ---
FAXED AUTHORIZATION FORM FOR MEDICAL RECORDS TO [facility].
[2020-06-10] MEDS: K PHOS NEUTRAL 250 MG TABLET PO ONE ×2 (12:00→14:01)
--- NOTE | 2020-06-10 12:00 | NUR ---
PATIENT REFUSED NEUTRO PHOS K TAB I EXPLAINED THE RISKS AND BENEFITS OF MEDICATION AND STILL REFUSED THE MEDICATION.
--- NOTE | 2020-06-10 14:50 | NUR ---
[facility] TO CONFIRM THEY RECEIVED THE AUTH FORM FOR MEDICAL RECORDS, FAX DID GET RECEIVED WAITING FOR MEDICAL RECORDS TO BE FAXED. SPOKE WITH LOKI FROM THE MEDICAL RECORDS DEPT.
[2020-06-10] MEDS: METOPROLOL TARTRATE 50 MG TABLET PO SCH (17:00)
--- NOTE | 2020-06-10 19:04 | NUR ---
MS RN CLOSING NOTES PATIENT IS A/O X 2 AWAKE WITH NO SIGNS OF DISTRESS AND NO SOB ON 3L OF NASAL CANNULA. IV L AC#20G INTACT SL. NO COMPLAINT OF PAIN OR DISCOMFORT AT THIS TIME. PATIENT KEPT CLEAN AND DRY. ALL NEEDS, CARE, TREATMENT AND MEDICATIONS ADMINISTERED ANTICIPATED PER ORDER. SAFETY MEASURES ARE APPLIED BED IS LOCKED AND LOW POSITION, SIDE RAILS UP X 2 FOR SAFETY. CALL LIGHT WITHIN REACH. WILL ENDORSE TO THE NEXT DAIRY SCIENCE TEACHER.
--- NOTE | 2020-06-10 19:20 | NUR ---
RN medsurg opening notes Pt is resting in bed comfortably. Pt is alert and orientedX2. Respiration is normal in 3 L NC. No SOB. No S/S of distress noted. IV sites at LAC# 20 is clean, intact and SL. Sitter at the bedside. Safety precautions is maintained. Bed at low position, brakes locked, side rails upX2 and call light is within reach. Will continue to monitor.
[2020-06-10 20:00] VITALS: BP 117/52
[2020-06-10] MEDS: ATORVASTATIN 10 MG TABLET PO SCH (21:14)
[2020-06-11] MEDS: IPRATROPIUM NEB FS 0.5 MG/2.5 ML AMPUL.NEB NEB SCH ×4 (01:46→20:07)
[2020-06-11 06:56] LABS: BASOPHILS % (AUTO) 0.2 % (0.0-2.0); EOSINOPHILS % (AUTO) 0.4 % (0.0-6.0); HEMATOCRIT 28 % (39-51); LYMPHOCYTES # (AUTO) 0.6 /CMM (0.8-4.8); LYMPHOCYTES % (AUTO) 7.2 % (20.0-44.0); MEAN CORPUSCULAR HGB CONC 32 g/dl (31.0-36.0); MEAN CORPUSCULAR VOLUME 104 fL (80-96); MONOCYTES # (AUTO) 0.6 /CMM (0.1-1.30); MONOCYTES % (AUTO) 6.5 % (2.0-12.0); NEUTROPHILS # (AUTO) 7.7 /CMM (1.8-8.9); NEUTROPHILS % (AUTO) 85.7 % (43.0-81.0); PLATELET COUNT (AUTO) 262 /CMM (150-450); RED BLOOD CELL COUNT(AUTO) 2.69 MIL/uL (4.5-6.0)
--- NOTE | 2020-06-11 06:57 | NUR ---
RN medsurg closing notes Pt is resting in bed comfortably. Pt is alert and orientedX2. Respiration is normal in 3 L NC. No SOB. No S/S of distress noted. VS is stable. Afebrile. Routine meds were given as ordered. IV sites at LAC# 20 is clean, intact and SL. Sitter at the bedside. Safety precautions is maintained. Bed at low position, brakes locked, side rails upX2 and call light is within reach. Will endorse to morning nurse for LAY.
--- NOTE | 2020-06-11 07:29 | NUR ---
MS RN OPENING NOTES PATIENT IS AWAKE A/OX2 WITH NO SIGNS OF DISTRESS AND NO SOB ON 3L OF NASAL CANNULA. IV L AC#20G INTACT SL. NO COMPLAINT OF PAIN OR DISCOMFORT AT THIS TIME. SAFETY MEASURES ARE APPLIED BED IS LOCKED AND LOW POSITION, SIDE RAILS UP X 2 FOR SAFETY. CALL LIGHT WITHIN REACH WILL CONTINUE TO MONITOR.
[2020-06-11 08:13] LABS: ALANINE AMINOTRANSFERASE 56 U/L (12-78); ALBUMIN 2.4 g/dL (3.4-5.0); ALKALINE PHOSPHATASE 63 U/L (46-116); ASPARTATE AMINOTRANSFERASE 114 U/L (15-37); BILIRUBIN,TOTAL 0.8 mg/dL (0.2-1.0); CALCIUM, SERUM 8.8 mg/dL (8.5-10.1); CARBON DIOXIDE 28 mmol/L (21-32); CHLORIDE 108 mmol/L (98-107); CREATININE 1.5 mg/dL (0.6-1.3); GLUCOSE 121 mg/dL (74-106); MAGNESIUM 2.3 mg/dL (1.8-2.4); PHOSPHORUS 2.4 mg/dL (2.5-4.9); POTASSIUM 3.7 mmol/L (3.5-5.1); SODIUM SERUM 142 mmol/L (136-145); TOTAL PROTEIN, SERUM 6.3 g/dL (6.4-8.2); UREA NITROGEN, BLOOD 43 mg/dL (7-18)
[2020-06-11] MEDS ORDERED: CLONIDINE HCL 0.2MG/24H PTWK 1 EA PATCH TD SCH (09:00)
[2020-06-11] MEDS: METOPROLOL TARTRATE 50 MG TABLET PO SCH ×2 (09:00→17:57)
[2020-06-11] MEDS: AMLODIPINE BESYLATE 5 MG TABLET PO SCH (09:00)
[2020-06-11] MEDS: LOSARTAN POTASSIUM 50 MG TABLET PO SCH ×2 (09:00→17:00)
[2020-06-11] MEDS: ISOSORBIDE MONONITRATE (30MG) 30 MG TAB.SR.24H PO SCH (09:00)
[2020-06-11] MEDS: QUETIAPINE FUMARATE 25 MG TABLET PO SCH ×2 (10:04→17:57)
[2020-06-11] MEDS: ALLOPURINOL 100 MG TABLET PO SCH (10:04)
[2020-06-11] MEDS: ASPIRIN EC 81 MG TABLET.DR PO SCH (10:04)
[2020-06-11] MEDS: CLOPIDOGREL BISULFATE 75 MG TABLET PO SCH (10:05)
[2020-06-11] MEDS: ENOXAPARIN SODIUM 40 MG/0.4 ML DISP.SYRIN SQ SCH (10:06)
[2020-06-11] MEDS: FLUTICASONE/VILANTEROL 1 EACH BLST.W.DEV IH SCH (10:09)
--- NOTE | 2020-06-11 19:11 | NUR ---
MS RN CLOSING NOTES PATIENT IS AWAKE A/OX2 WITH NO SIGNS OF DISTRESS AND NO SOB ON 3L OF NASAL CANNULA. IV L AC#20G INTACT SL. NO COMPLAINT OF PAIN OR DISCOMFORT AT THIS TIME. ALL NEEDS, CARE, TREATMENT AND MEDICATIONS ADMINISTERED ANTICIPATED PER ORDER. SAFETY MEASURES ARE APPLIED BED IS IN LOCK POSITION SIDE RAILS UP X 2 FOR SAFETY CALL LIGHT WITHIN REACH. WILL ENDORSE TO THE TREE SURGEON NURSE.
--- NOTE | 2020-06-11 19:30 | NUR ---
MS/RN NOTES RECEIVED PATIENT IN BED RESTING. PATIENT IS ALERT AND OREINTED X 2. NO SIGNS OF SOB OR RESPIRATORY DISTRESS NOTED. PATIENT IS TOLERATING ROOM AIR WELL, 95%. PATIENT BREATHING IS EVEN AND UNLABORED. PATIENT HAS LEFT ARM AC #20 G IV IN PLACED AND PATENT. SAFETY MEASURES ARE IN PLACE. BED IS LOCKED AND PLACED IN THE LOW POSITION SIDERAILS UP X 3. CALL LIGHT IS WITHIN REACH. WILL CONTINUE TO MONITOR PATIENT THROUGH OUT SHIFT.
[2020-06-11 20:00] VITALS: BP 96/60
[2020-06-11] MEDS: ZOLPIDEM TARTRATE 5 MG TABLET PO PRN (22:02)
[2020-06-11] MEDS: ATORVASTATIN 10 MG TABLET PO SCH (22:02)
--- NOTE | 2020-06-11 22:05 | NUR ---
MS/RN NOTES PATIENT REQUESTED FOR MEDICATION TO HELP GET A RESTFUL NIGHT SLEEP. AMBIEN 5 MG PO WAS GIVEN. V/S ARE WITHIN NORMAL LIMITS. NO SIGNS OF DISTRESS NOTED. WILL CONTINUE TO MONITOR.
[2020-06-12] MEDS: IPRATROPIUM NEB FS 0.5 MG/2.5 ML AMPUL.NEB NEB SCH ×4 (01:21→19:30)
--- NOTE | 2020-06-12 06:20 | NUR ---
MS/RN CLOSING NOTES PATIENT IN BED RESTING. PATIENT IS ALERT AND ORIENTED X 2. NO SIGNS OF SOB OR RESPIRATORY DISTRESS NOTED. PATIENT IS ON 2L VIA N/C TOLERATING ROOM AIR WELL, 95%. PATIENT BREATHING IS EVEN AND UNLABORED. PATIENT HAS LEFT ARM AC #20 G IV IN PLACED. ALL OF THE PATIENTS NEEDS HAVE BEEN MET DURING SHIFT. SAFETY MEASURES ARE IN PLACE. BED IS LOCKED AND PLACED IN THE LOW POSITION SIDE RAILS UP X 3. CALL LIGHT IS WITHIN REACH. WILL ENDORSE CARE TO DAY SHIFT.
[2020-06-12 06:28] LABS: BASOPHILS % (AUTO) 0.1 % (0.0-2.0); EOSINOPHILS % (AUTO) 0.9 % (0.0-6.0); HEMATOCRIT 26 % (39-51); HEMOGLOBIN 8.5 g/dL (13.5-17.5); LYMPHOCYTES # (AUTO) 0.6 /CMM (0.8-4.8); LYMPHOCYTES % (AUTO) 8.1 % (20.0-44.0); MEAN CORPUSCULAR HGB CONC 33 g/dl (31.0-36.0); MEAN CORPUSCULAR VOLUME 103 fL (80-96); MONOCYTES # (AUTO) 0.6 /CMM (0.1-1.30); MONOCYTES % (AUTO) 8.3 % (2.0-12.0); NEUTROPHILS # (AUTO) 6.1 /CMM (1.8-8.9); NEUTROPHILS % (AUTO) 82.6 % (43.0-81.0); PLATELET COUNT (AUTO) 296 /CMM (150-450); RED BLOOD CELL COUNT(AUTO) 2.51 MIL/uL (4.5-6.0); WHITE BLOOD COUNT (AUTO) 7.4 K/uL (4.3-11.0)
[2020-06-12 06:58] LABS: CALCIUM, SERUM 8.9 mg/dL (8.5-10.1); CARBON DIOXIDE 31 mmol/L (21-32); CHLORIDE 107 mmol/L (98-107); CREATININE 1.4 mg/dL (0.6-1.3); GLUCOSE 103 mg/dL (74-106); MAGNESIUM 2.1 mg/dL (1.8-2.4); PHOSPHORUS 2.1 mg/dL (2.5-4.9); POTASSIUM 3.7 mmol/L (3.5-5.1); SODIUM SERUM 144 mmol/L (136-145); UREA NITROGEN, BLOOD 36 mg/dL (7-18)
--- NOTE | 2020-06-12 07:00 | NUR ---
STEEL INSPECTOR OPENING NOTES Received patient alert and oriented x 2, with no complain of pain or discomfort at this time. Respiration is even and easy. Pt IV site on left AC intact and infusing well. Head of bed kept elevated for aspiration precaution. Call left left within reach for easy access. Needs will be anticipated and attended to.
[2020-06-12 08:00] VITALS: BP 115/50
[2020-06-12] MEDS: ENOXAPARIN SODIUM 40 MG/0.4 ML DISP.SYRIN SQ SCH (09:00)
[2020-06-12] MEDS: ASPIRIN EC 81 MG TABLET.DR PO SCH (09:00)
[2020-06-12] MEDS: CLOPIDOGREL BISULFATE 75 MG TABLET PO SCH (09:00)
[2020-06-12] MEDS: METOPROLOL TARTRATE 50 MG TABLET PO SCH ×2 (10:15→17:15)
[2020-06-12] MEDS: ISOSORBIDE MONONITRATE (30MG) 30 MG TAB.SR.24H PO SCH (10:15)
[2020-06-12] MEDS: ALLOPURINOL 100 MG TABLET PO SCH (10:16)
[2020-06-12] MEDS: AMLODIPINE BESYLATE 5 MG TABLET PO SCH (10:16)
[2020-06-12] MEDS: QUETIAPINE FUMARATE 25 MG TABLET PO SCH ×2 (10:16→17:15)
[2020-06-12] MEDS: LOSARTAN POTASSIUM 50 MG TABLET PO SCH ×2 (10:17→17:15)
[2020-06-12] MEDS ORDERED: K PHOS NEUTRAL 250 MG TABLET PO ONE (11:00)
[2020-06-12] MEDS: FLUTICASONE/VILANTEROL 1 EACH BLST.W.DEV IH SCH (11:52)
[2020-06-12 16:34] VITALS: BP 115/50
[2020-06-12 17:51] VITALS: BP 114/52
--- NOTE | 2020-06-12 18:00 | NUR ---
RN MS NOTES PT'S OLD IV SITE LEAKING, PT REFUSES IT TO BE CHECKED, PT ALSO REFUSES TO BE INSERTED WITH A NEW IV LINE, PT NO IV ACCESS, DR. LORRIE MAC.
--- NOTE | 2020-06-12 18:35 | NUR ---
FOOT WORKER CLOSING NOTES Pt remains alert, oriented x2. Respiration is even and easy with no shortness of breath. Pt is on O2 @ 2LPM via NC. No complain of pain or discomfort at this time. No IV access at this time, Dr Zuñiga aware. Pt is clear for discharge to SNF. Awaiting for placement. Kept safe and comfortable at all times. All needs anticipated and provided to.
--- NOTE | 2020-06-12 19:30 | NUR ---
MS/RN OPENING NOTES RECEIVED PATIENT IN BED RESTING. PATIENT IS ALERT AND ORIENTED X 2. NO SIGNS OF SOB OR RESPIRATORY DISTRESS NOTED. PATIENT IS ON 2L VIA N/C TOLERATING ROOM AIR WELL, 95%. PATIENT BREATHING IS EVEN AND UNLABORED. PATIENT HAS LEFT ARM AC #20 G IV IN PLACED. SAFETY MEASURES ARE IN PLACE. BED IS LOCKED AND PLACED IN THE LOW POSITION SIDE RAILS UP X 3. CALL LIGHT IS WITHIN REACH. WILL CONTINUE MONITOR DURING SHIFT.
[2020-06-12 20:00] VITALS: BP 103/99
[2020-06-12 20:50] VITALS: BP 103/49
--- NOTE | 2020-06-12 21:01 | NUR ---
RT pt refused tx. notified CHRISTIE Simeon
[2020-06-12] MEDS: ZOLPIDEM TARTRATE 5 MG TABLET PO PRN (21:09)
[2020-06-12] MEDS: ATORVASTATIN 10 MG TABLET PO SCH (21:10)
--- NOTE | 2020-06-12 21:10 | NUR ---
MS/RN NOTES PATIENT REFUSED RT TREATMENT. PATIENT STATES HE WANTS TO SLEEP AND GET REST FOR THE NIGHT. PATIENT WAS GIVEN AMBIEN 5 MG PO. V/S ARE WITHIN NORMAL LIMITS. WILL CONTINUE TO MONITOR.
[2020-06-13] MEDS: IPRATROPIUM NEB FS 0.5 MG/2.5 ML AMPUL.NEB NEB SCH ×4 (01:35→19:14)
--- NOTE | 2020-06-13 06:15 | NUR ---
MS/RN CLOSING NOTES PATIENT IN BED RESTING. PATIENT IS ALERT AND ORIENTED X 2. NO SIGNS OF SOB OR RESPIRATORY DISTRESS NOTED. PATIENTS BREATHING IS EVEN AN UNLABORED. PATIENT IS ON 2L VIA N/C TOLERATING ROOM AIR WELL, 96%. PATIENT HAS LEFT ARM AC #20 G IV IN PLACED. ALL PATIENTS NEEDS HAVE BEEN MET DURING SHIFT. SAFETY MEASURES ARE IN PLACE, BED IS LOCKED AND PLACED IN THE LOW POSITION SIDE RAILS UP X 3. CALL LIGHT IS WITHIN REACH. WILL ENDORSE CARE TO DAY SHIFT.
[2020-06-13 06:50] LABS: CALCIUM, SERUM 8.7 mg/dL (8.5-10.1); CREATININE 1.2 mg/dL (0.6-1.3); PHOSPHORUS 2.2 mg/dL (2.5-4.9); POTASSIUM 3.6 mmol/L (3.5-5.1)
--- NOTE | 2020-06-13 07:32 | NUR ---
RN MS NOTES PT IN BED, ASLEEP, EASY TO AROUSE, ALERT AND ORIENTED, NO COMPLAINT OF PAIN OR ANY DISCOMFORT, BREATHING PATTERN NORMAL, CALL LIGHT WITHIN REACH, KEPT SCHEDULE CHECKER BED, NEEDS ATTENDED.
--- NOTE | 2020-06-13 07:47 | NUR ---
PT REFUSED RESP TX ATT. NO S/S OF SOB NOTED. BENEFITS AND CONTRAINDICATIONS EXPLAINED. WILL CONT TO MONITOR Addendum: 06/13/20 at 0748 by ILSA MATHUR RT Amended: Links added.
[2020-06-13 08:00] VITALS: BP_SYST 118; BP_SYST 125; BP_DIAS 57; BP_DIAS 61
[2020-06-13] MEDS: ISOSORBIDE MONONITRATE (30MG) 30 MG TAB.SR.24H PO SCH (09:00)
[2020-06-13] MEDS: AMLODIPINE BESYLATE 5 MG TABLET PO SCH (09:00)
[2020-06-13] MEDS: ASPIRIN EC 81 MG TABLET.DR PO SCH (09:00)
[2020-06-13] MEDS: CLOPIDOGREL BISULFATE 75 MG TABLET PO SCH (09:00)
[2020-06-13] MEDS: ENOXAPARIN SODIUM 40 MG/0.4 ML DISP.SYRIN SQ SCH (09:00)
[2020-06-13] MEDS: METOPROLOL TARTRATE 50 MG TABLET PO SCH ×2 (09:00→17:56)
[2020-06-13] MEDS: ALLOPURINOL 100 MG TABLET PO SCH (09:00)
[2020-06-13] MEDS: QUETIAPINE FUMARATE 25 MG TABLET PO SCH ×2 (09:00→17:55)
[2020-06-13] MEDS: LOSARTAN POTASSIUM 50 MG TABLET PO SCH ×2 (09:00→17:55)
--- NOTE | 2020-06-13 09:05 | NUR ---
RN MS NOTES BLOOD THINNERS NON ADMINISTERED, PT HAS LOW H/H.
[2020-06-13] MEDS: FLUTICASONE/VILANTEROL 1 EACH BLST.W.DEV IH SCH (10:18)
[2020-06-13] MEDS ORDERED: NEUTRA PHOS 1 POWD.PACKET PO ONE (12:00)
[2020-06-13] MEDS ORDERED: NEUTRA PHOS 1 POWD.PACKET NG ONE (12:00)
--- NOTE | 2020-06-13 14:27 | NUR ---
PT REFUSED RESP TX ATT. NO S/S OF SOB NOTED. BENEFITS AND CONTRAINDICATIONS EXPLAINED. WILL CONT TO MONITOR Addendum: 06/13/20 at 1428 by ILSA MATHUR RT Amended: Links added.
[2020-06-13 16:00] VITALS: BP 125/61
--- NOTE | 2020-06-13 18:11 | NUR ---
RN MS NOTES PT IN BED, RESTING, AWAKE, ALERT AND ORIENTED, NO COMPLAINT OF PAIN OR ANY DISCOMFORT AT THIS TIME, BREATHING PATTERN NORMAL, DISCHARGE ORDER GIVEN BY DR. ANDREW, PT INFORMED, DISCHARGE AND MEDICATION INSTRUCTIONS PROVIDED TO PT, VERBALIZED UNDERSTANDING, PT REFUSED DRESSING CHANGE AND SKIN PHOTOS, REPORT GIVEN TO NARESH SORIANO OF [facility], SCHEDULED CERTIFIED FLIGHT INSTRUCTOR TIME IS 1900, PT AWARE, BELONGINGS ACCOUNTED FOR, PM MEDS GIVEN, ASSISTED WITH DINNER.
--- NOTE | 2020-06-13 19:14 | NUR ---
RN MS NOTES PT FOR FLOW FLOOR ATTENDANT BY AMBULANCE, VITAL SIGNS TAKEN BP 108/54, TEMP 98, O2SAT 92% ON ROOM AIR, RR 20, HR 140 , AMBULANCE AND SNF UNABLE TO TAKE PT WITH ELEVATED HR, DR. ANDREW INFORMED, AWAITING ORDERS.
--- NOTE | 2020-06-13 19:37 | NUR ---
RN MS NOTES DR. ANDREW INFORMED OF PT'S VITALS, ORDERED EKG.
--- NOTE | 2020-06-13 19:54 | NUR ---
MS/RN OPENING NOTES RECEIVED PATIENT IN BED, AWAKE, ALERT X2, ABLE TO VERBALIZED NEEDS, REPORTED FEELING A LITTLE BIT WORRIED, HAD PULSE RATE AT 140 AND WAS NOT PICKED UP BY TRANSPORT DUE TO ELEVATED HR. MD MADE AWARE AND ORDERED FOR EKG, EKG RESULT WAS PROVIDED TO MD AWAITING FOR ORDER.
[2020-06-13] MEDS ORDERED: DIGOXIN INJ 0.5 MG/2 ML AMPUL IV ONE (20:30)
[2020-06-13] MEDS ORDERED: CARVEDILOL 12.5 MG TABLET PO SCH (20:30)
--- NOTE | 2020-06-13 20:32 | NUR ---
MS/RN NOTES RECEIVED NEW ORDER FROM MD ANDREW TO CHANGE HTN MEDICATION METOPROLOL 50 MG TO COREG 12.5 MG PO BID AND TO GIVE ONE NOW, ALSO TO MONITOR HR, TO GIVE DIGOXIN 0.25 MG IV NOW AND ONCE HR IS LESS THAN 110 OKAY TO BE DISCHARGED.
[2020-06-13 20:59] VITALS: BP 135/51
[2020-06-13] MEDS: ATORVASTATIN 10 MG TABLET PO SCH (21:25)
--- NOTE | 2020-06-13 21:55 | NUR ---
MS/RN NOTES PATIENT MD ORDER FOR DISCHARGE ONCE HEART RATE IS LESS THAN 110. RN JEYSON OF SNF CONTACTED INFORMED TIME OF SPORTS ACTIVITIES FOUL JUDGE BY AMBULANCE FROM [place] AND FAMILY WAS CONTACTED AND REPORTED ABOUT PATIENT CONDITION. THAT PER MD TO BE DISCHARGE AT THE FACILITY, MADE AWARE THAT SOME MEDICATION CHANGES FOR HEART RATE GIVEN AND WAS AWARE.
--- NOTE | 2020-06-13 22:19 | NUR ---
DISCHARGE TO [facility] VIA [facility] PICKED UP BY AMBULANCE. REPORT GIVEN AND NEGRA BENÍTEZ RN WAS MADE AWARE.
== END 2020-06-13 22:20 | DRG 280 ==
LOC: TELE 21:41 → MED 06-09 08:59
PROVIDERS: ADMIT Nurse Practitioner Acute Care
DX: I21.4 Non-ST elevation (NSTEMI) myocardial infarction (principal); N17.0 Acute kidney failure with tubular necrosis; G91.2 (Idiopathic) normal pressure hydrocephalus; E44.1 Mild protein-calorie malnutrition; E87.0 Hyperosmolality and hypernatremia; D68.69 Other thrombophilia; I13.0 Hypertensive heart and chronic kidney disease with heart failure and stage 1 through stage 4 chronic kidney disease, or unspecified chronic kidney disease; I25.10 Atherosclerotic heart disease of native coronary artery without angina pectoris; I25.2 Old myocardial infarction; D63.1 Anemia in chronic kidney disease; E86.0 Dehydration; F03.90 Unspecified dementia, unspecified severity, without behavioral disturbance, psychotic disturbance, mood disturbance, and anxiety; I50.9 Heart failure, unspecified; N40.0 Benign prostatic hyperplasia without lower urinary tract symptoms; E88.09 Other disorders of plasma-protein metabolism, not elsewhere classified; Z68.27 Body mass index [BMI] 27.0-27.9, adult; R23.4 Changes in skin texture; S80.812A Abrasion, left lower leg, initial encounter; S80.212A Abrasion, left knee, initial encounter; X58.XXXA Exposure to other specified factors, initial encounter; Y93.9 Activity, unspecified; Y92.89 Other specified places as the place of occurrence of the external cause; Z91.81 History of falling; S22.32XD Fracture of one rib, left side, subsequent encounter for fracture with routine healing; M25.551 Pain in right hip; N18.9 Chronic kidney disease, unspecified; J44.9 Chronic obstructive pulmonary disease, unspecified; M20.41 Other hammer toe(s) (acquired), right foot; M20.42 Other hammer toe(s) (acquired), left foot
CPT/HCPCS: 36415; 71045-TC; 80048-TC; 80053-TC; 83735-TC; 83935-TC; 84100-TC; 84300-TC; 84443-TC; 84550-TC; 85025-TC; 87081-TC; 94760-TC; 94799-TC; 97112-TC; 97530-TC; A4217; A6403; G0378; J1160; J1650; J7030; J7040